=== PATIENT | male | born 1990 | race Caucasian/White ===

== ENCOUNTER 2019-11-20 17:12 | Inpatient (IN) | payer MEDICAID, OTHER ==
[~2019-11-20] VITALS: Ht 185.4 cm; Wt 69.1 kg
[2019-11-20 18:14] LABS: BASOPHILS % (AUTO) 0.5 % (0.0-2.0); EOSINOPHILS % (AUTO) 1.2 % (1.0-6.0); HEMATOCRIT 46.6 % (41-53); HEMOGLOBIN 15.7 g/dL (13.5-17.5); LYMPHOCYTES # (AUTO) 1.1 K/uL (1.0-4.8); LYMPHOCYTES % (AUTO) 20.7 % (22.0-44.0); MEAN CORPUSCULAR HGB CONC 33.7 G/dL (31.0-37.0); MEAN CORPUSCULAR VOLUME 95 fL (80-100); MONOCYTES # (AUTO) 0.5 K/uL (0.1-1.0); MONOCYTES % (AUTO) 9.5 % (2.0-9.0); NEUTROPHILS # (AUTO) 3.7 K/uL (1.8-7.7); NEUTROPHILS % (AUTO) 68.1 % (40.0-70.0); PLATELET COUNT (AUTO) 185 K/uL (150-450); RED CELL DISTRIBUTION WIDTH 12.4 % (11.5-14.5)
[2019-11-20 18:20] LABS: ANION GAP 15 mmol/L (8-16); CALCIUM, TOTAL 9.3 mg/dL (8.8-10.5); CARBON DIOXIDE 23 mmol/L (22-29); CHLORIDE 99 mmol/L (98-107); GLOMERULAR FILTR. RATE CALC 51 mL/min (>60); GLUCOSE,RANDOM 82 mg/dL (70-110); POTASSIUM 4.2 mmol/L (3.5-5.1); SODIUM SERUM 137 mmol/L (136-145); UREA NITROGEN, BLOOD 20 mg/dL (7-18)
[2019-11-20 18:28] LABS: ALANINE AMINOTRANSFERASE 26 U/L (12-78); ALBUMIN 4.5 g/dL (3.4-5.0); ALKALINE PHOSPHATASE 76 U/L (46-116); ASPARTATE AMINOTRANSFERASE 27 U/L (15-37); BILIRUBIN,TOTAL 1.1 mg/dL (0.1-1.0); TOTAL PROTEIN, SERUM 8.2 g/dL (6.4-8.2)
[2019-11-20] MEDS ORDERED: LORazepam 2 MG TABLET PO PRN (20:00)
[2019-11-20] MEDS ORDERED: ZOLPIDEM TARTRATE 10 MG TABLET PO PRN (20:00)
[2019-11-20] MEDS ORDERED: HALOPERIDOL 5 MG TABLET PO PRN (20:00)
[2019-11-21 01:20] VITALS: BP 120/81
[2019-11-21] MEDS ORDERED: IBUPROFEN 400 MG TABLET PO PRN (07:30)
[2019-11-21] MEDS ORDERED: CloNIDine HCL 0.1 MG TABLET PO PRN (07:30)
[2019-11-21] MEDS ORDERED: ACETAMINOPHEN 325 MG TABLET PO PRN (07:30)
[2019-11-21] MEDS ORDERED: PETROLATUM,WHITE 28 GM JELLY TP PRN (07:30)
[2019-11-21] MEDS ORDERED: NICOTINE 14 MG/24 HOUR PATCH TD PRN (07:30)
[2019-11-21] MEDS ORDERED: LOPERAMIDE HCL 2 MG CAPSULE PO PRN (07:30)
[2019-11-21] MEDS ORDERED: MAGNESIUM HYDROXIDE SUSPENSION 30 ML UDCUP PO PRN (07:30)
[2019-11-21] MEDS ORDERED: GuaiFENesin/D-METHORPHAN [SUGAR-FREE] 200-20MG/10 ML SYRUP UDCUP PO PRN (07:30)
[2019-11-21] MEDS ORDERED: ONDANSETRON HCL 4 MG TABLET PO PRN (07:30)
[2019-11-21] MEDS ORDERED: MAG HYDROX/AL HYDROX/SIMETH ES 30 ML SUSPENSION UDCUP PO PRN (07:30)
[2019-11-21] MEDS ORDERED: ALBUTEROL SULFATE HFA 90 MCG/PUFF 8 GM INHALER IH PRN (07:30)
[2019-11-21 08:27] VITALS: BP 132/84
[2019-11-21 08:29] LABS: CHOL/HDL RATIO 5.1 (4.2-7.3)
[2019-11-21] MEDS: BACITRACIN 28.4 GM OINTMENT TP SCH ×2 (09:00→16:47)
[2019-11-21 16:13] VITALS: BP 111/67
[2019-11-21] MEDS: MIRTAZAPINE 15 MG TABLET PO SCH (20:26)
[2019-11-21] MEDS: RisperiDONE 1 MG TABLET PO SCH (20:26)
[2019-11-22 04:14] VITALS: BP 112/70
[2019-11-22] MEDS: BACITRACIN 28.4 GM OINTMENT TP SCH ×2 (10:58→17:17)
[2019-11-22] MEDS: RisperiDONE 1 MG TABLET PO SCH (20:15)
[2019-11-22] MEDS: MIRTAZAPINE 15 MG TABLET PO SCH (20:15)
[2019-11-23 06:09] VITALS: BP 124/87
[2019-11-23 08:48] VITALS: BP 128/74
[2019-11-23] MEDS: BACITRACIN 28.4 GM OINTMENT TP SCH ×2 (13:10→17:11)
[2019-11-23 16:17] VITALS: BP 128/86
[2019-11-23] MEDS: RisperiDONE 1 MG TABLET PO SCH (21:20)
[2019-11-23] MEDS: MIRTAZAPINE 15 MG TABLET PO SCH (21:20)
[2019-11-24 05:54] VITALS: BP 124/78
[2019-11-24] MEDS: BACITRACIN 28.4 GM OINTMENT TP SCH ×2 (09:19→17:34)
[2019-11-24 09:43] VITALS: BP 117/81
[2019-11-24 16:30] VITALS: BP 140/84
[2019-11-24] MEDS: DOCUSATE SODIUM 100 MG CAPSULE PO PRN (17:03)
[2019-11-24] MEDS: MIRTAZAPINE 15 MG TABLET PO SCH (21:04)
[2019-11-24] MEDS: RisperiDONE 1 MG TABLET PO SCH (21:04)
[2019-11-25 00:38] VITALS: BP 128/78
[2019-11-25] MEDS: BACITRACIN 28.4 GM OINTMENT TP SCH ×2 (09:00→16:42)
[2019-11-25 09:49] VITALS: BP 127/79
[2019-11-25 16:29] VITALS: BP 135/98
[2019-11-25] MEDS: MIRTAZAPINE 15 MG TABLET PO SCH (21:00)
[2019-11-25] MEDS: RisperiDONE 2 MG TABLET PO SCH (21:00)
[2019-11-26 05:02] VITALS: BP 126/79
[2019-11-26 08:52] VITALS: BP 139/96
[2019-11-26] MEDS: BACITRACIN 28.4 GM OINTMENT TP SCH ×2 (09:00→17:00)
[2019-11-26] MEDS: DOCUSATE SODIUM 100 MG CAPSULE PO PRN (10:46)
[2019-11-26 17:25] VITALS: BP 136/87
[2019-11-26] MEDS: MIRTAZAPINE 15 MG TABLET PO SCH (20:19)
[2019-11-26] MEDS: RisperiDONE 2 MG TABLET PO SCH (20:19)
[2019-11-27 06:10] VITALS: BP 122/65
[2019-11-27 08:38] LABS: PHOSPHORUS 3.8 mg/dL (2.5-4.9)
[2019-11-27] MEDS: BACITRACIN 28.4 GM OINTMENT TP SCH ×2 (09:00→17:00)
[2019-11-27] MEDS: FOLIC ACID 1 MG TABLET PO SCH (09:05)
[2019-11-27] MEDS: THIAMINE 100 MG TABLET PO SCH (09:05)
[2019-11-27] MEDS: MULTIVITAMINS WITH MINERALS, THERAPEUTIC TABLET PO SCH (09:05)
[2019-11-27 09:59] VITALS: BP 118/76
[2019-11-27 19:27] VITALS: BP 111/76
[2019-11-27] MEDS: RisperiDONE 2 MG TABLET PO SCH (20:15)
[2019-11-27] MEDS: MIRTAZAPINE 15 MG TABLET PO SCH (20:15)
[2019-11-28 00:10] VITALS: BP 109/64
[2019-11-28 08:14] VITALS: BP 130/82
[2019-11-28] MEDS: THIAMINE 100 MG TABLET PO SCH (08:42)
[2019-11-28] MEDS: MULTIVITAMINS WITH MINERALS, THERAPEUTIC TABLET PO SCH (08:42)
[2019-11-28] MEDS: DOCUSATE SODIUM 100 MG CAPSULE PO PRN (08:42)
[2019-11-28] MEDS: FOLIC ACID 1 MG TABLET PO SCH (08:42)
[2019-11-28] MEDS: BACITRACIN 28.4 GM OINTMENT TP SCH ×2 (08:43→16:19)
[2019-11-28 16:42] VITALS: BP 115/76
[2019-11-28] MEDS: RisperiDONE 2 MG TABLET PO SCH (20:16)
[2019-11-28] MEDS: MIRTAZAPINE 15 MG TABLET PO SCH (20:16)
[2019-11-29 04:34] VITALS: BP 120/72
[2019-11-29] MEDS: MULTIVITAMINS WITH MINERALS, THERAPEUTIC TABLET PO SCH (08:31)
[2019-11-29] MEDS: FOLIC ACID 1 MG TABLET PO SCH (08:31)
[2019-11-29] MEDS: THIAMINE 100 MG TABLET PO SCH (08:31)
[2019-11-29] MEDS: BACITRACIN 28.4 GM OINTMENT TP SCH ×2 (08:33→16:45)
[2019-11-29 08:41] VITALS: BP 112/66
[2019-11-29 16:21] VITALS: BP 128/79
[2019-11-29] MEDS: MIRTAZAPINE 15 MG TABLET PO SCH (20:56)
[2019-11-29] MEDS: RisperiDONE 2 MG TABLET PO SCH (20:56)
[2019-11-30] MEDS: MULTIVITAMINS WITH MINERALS, THERAPEUTIC TABLET PO SCH (08:23)
[2019-11-30] MEDS: FOLIC ACID 1 MG TABLET PO SCH (08:23)
[2019-11-30] MEDS: THIAMINE 100 MG TABLET PO SCH (08:23)
[2019-11-30 08:26] VITALS: BP 109/84
[2019-11-30] MEDS: BACITRACIN 28.4 GM OINTMENT TP SCH ×2 (09:00→17:00)
[2019-11-30 16:11] VITALS: BP 100/67
[2019-11-30] MEDS: RisperiDONE 2 MG TABLET PO SCH (20:30)
[2019-11-30] MEDS: MIRTAZAPINE 15 MG TABLET PO SCH (20:30)
[2019-12-01 01:28] VITALS: BP 120/88
[2019-12-01 08:09] VITALS: BP 110/71
[2019-12-01] MEDS: BACITRACIN 28.4 GM OINTMENT TP SCH (08:40)
[2019-12-01] MEDS: THIAMINE 100 MG TABLET PO SCH (08:40)
[2019-12-01] MEDS: MULTIVITAMINS WITH MINERALS, THERAPEUTIC TABLET PO SCH (08:40)
[2019-12-01] MEDS: FOLIC ACID 1 MG TABLET PO SCH (08:40)
[2019-12-01 16:22] VITALS: BP 112/64
[2019-12-01] MEDS ORDERED: BACITRACIN 28.4 GM OINTMENT TP PRN (19:15)
[2019-12-01] MEDS: MIRTAZAPINE 15 MG TABLET PO SCH (20:01)
[2019-12-01] MEDS: RisperiDONE 2 MG TABLET PO SCH (20:01)
[2019-12-02] MEDS: FOLIC ACID 1 MG TABLET PO SCH (08:34)
[2019-12-02] MEDS: MULTIVITAMINS WITH MINERALS, THERAPEUTIC TABLET PO SCH (08:34)
[2019-12-02] MEDS: THIAMINE 100 MG TABLET PO SCH (08:34)
[2019-12-02 09:12] VITALS: BP 106/72
[2019-12-02 17:05] VITALS: BP 108/68
[2019-12-02] MEDS: MIRTAZAPINE 15 MG TABLET PO SCH (20:27)
[2019-12-02] MEDS: RisperiDONE 2 MG TABLET PO SCH (20:27)
[2019-12-03] MEDS: THIAMINE 100 MG TABLET PO SCH (08:35)
[2019-12-03] MEDS: FOLIC ACID 1 MG TABLET PO SCH (08:35)
[2019-12-03] MEDS: MULTIVITAMINS WITH MINERALS, THERAPEUTIC TABLET PO SCH (08:35)
[2019-12-03] MEDS: DOCUSATE SODIUM 100 MG CAPSULE PO PRN (09:06)
[2019-12-03 09:48] VITALS: BP 130/79
[2019-12-03 16:13] VITALS: BP 119/71
[2019-12-03] MEDS: RisperiDONE 2 MG TABLET PO SCH (20:51)
[2019-12-03] MEDS: MIRTAZAPINE 15 MG TABLET PO SCH (20:51)
[2019-12-04 02:31] VITALS: BP 126/78
[2019-12-04] MEDS: FOLIC ACID 1 MG TABLET PO SCH (08:35)
[2019-12-04] MEDS: MULTIVITAMINS WITH MINERALS, THERAPEUTIC TABLET PO SCH (08:35)
[2019-12-04] MEDS: THIAMINE 100 MG TABLET PO SCH (08:36)
[2019-12-04 09:32] VITALS: BP 108/74
[2019-12-04 16:32] VITALS: BP 110/66
[2019-12-04] MEDS: RisperiDONE 2 MG TABLET PO SCH (20:36)
[2019-12-04] MEDS: MIRTAZAPINE 15 MG TABLET PO SCH (20:36)
[2019-12-05 04:29] VITALS: BP 115/76
[2019-12-05] MEDS: MULTIVITAMINS WITH MINERALS, THERAPEUTIC TABLET PO SCH (08:25)
[2019-12-05] MEDS: FOLIC ACID 1 MG TABLET PO SCH (08:25)
[2019-12-05] MEDS: THIAMINE 100 MG TABLET PO SCH (08:26)
[2019-12-05 08:31] VITALS: BP 120/70
[2019-12-05 16:23] VITALS: BP 102/65
[2019-12-05] MEDS: RisperiDONE 2 MG TABLET PO SCH (20:07)
[2019-12-05] MEDS: MIRTAZAPINE 15 MG TABLET PO SCH (20:07)
[2019-12-06 01:37] VITALS: BP 117/66
[2019-12-06] MEDS: MULTIVITAMINS WITH MINERALS, THERAPEUTIC TABLET PO SCH (09:31)
[2019-12-06] MEDS: FOLIC ACID 1 MG TABLET PO SCH (09:31)
[2019-12-06] MEDS: THIAMINE 100 MG TABLET PO SCH (09:33)
[2019-12-06 09:34] VITALS: BP 106/72
[2019-12-06 16:15] VITALS: BP 108/71
[2019-12-06] MEDS: RisperiDONE 2 MG TABLET PO SCH (20:58)
[2019-12-06] MEDS: MIRTAZAPINE 15 MG TABLET PO SCH (20:58)
[2019-12-07 04:42] VITALS: BP 110/70
[2019-12-07] MEDS: FOLIC ACID 1 MG TABLET PO SCH (08:14)
[2019-12-07] MEDS: THIAMINE 100 MG TABLET PO SCH (08:14)
[2019-12-07] MEDS: MULTIVITAMINS WITH MINERALS, THERAPEUTIC TABLET PO SCH (08:14)
[2019-12-07 08:42] VITALS: BP 101/54
[2019-12-07 13:58] VITALS: BP 111/74
[2019-12-07 17:32] VITALS: BP 122/65
[2019-12-07] MEDS: RisperiDONE 2 MG TABLET PO SCH (20:18)
[2019-12-07] MEDS: MIRTAZAPINE 15 MG TABLET PO SCH (20:18)
[2019-12-08 00:49] VITALS: BP 102/64
[2019-12-08] MEDS: THIAMINE 100 MG TABLET PO SCH (08:23)
[2019-12-08] MEDS: FOLIC ACID 1 MG TABLET PO SCH (08:23)
[2019-12-08] MEDS: MULTIVITAMINS WITH MINERALS, THERAPEUTIC TABLET PO SCH (08:23)
[2019-12-08 08:28] VITALS: BP 102/65
[2019-12-08] MEDS ORDERED: MIRT-89 PO (13:42)
[2019-12-08] MEDS ORDERED: RISP2TAB76 PO (13:42)
== END 2019-12-08 16:30 | disposition home or self-care (01) | DRG 751 ==
LOC: EMS 17:14 → B2S 21:00
DX: F33.3 Major depressive disorder, recurrent, severe with psychotic symptoms (principal); K21.9 Gastro-esophageal reflux disease without esophagitis; L29.9 Pruritus, unspecified; R45.851 Suicidal ideations; R00.0 Tachycardia, unspecified; I95.9 Hypotension, unspecified; R51 Headache; Z79.899 Other long term (current) drug therapy
CPT/HCPCS: 83735; 84100; G0480

== ENCOUNTER 2019-11-23 08:42 | Emergency (ER) | payer MEDICAID, OTHER ==
[~2019-11-23] VITALS: Ht 180.3 cm; Wt 66.0 kg
[2019-11-23] MEDS ORDERED: SODIUM CHLORIDE 0.9% 1,000 ML IV ONE (09:15)
[2019-11-23 09:39] LABS: BASOPHILS % (AUTO) 0.4 % (0.0-2.0); EOSINOPHILS % (AUTO) 1.1 % (1.0-6.0); HEMATOCRIT 45.6 % (41-53); HEMOGLOBIN 15.9 g/dL (13.5-17.5); LYMPHOCYTES % (AUTO) 16.8 % (22.0-44.0); MEAN CORPUSCULAR HEMOGLOBIN 33.1 pg (26.0-34.0); MEAN CORPUSCULAR HGB CONC 34.8 G/dL (31.0-37.0); MEAN CORPUSCULAR VOLUME 95 fL (80-100); MONOCYTES # (AUTO) 0.4 K/uL (0.1-1.0); MONOCYTES % (AUTO) 7.2 % (2.0-9.0); NEUTROPHILS # (AUTO) 4.4 K/uL (1.8-7.7); NEUTROPHILS % (AUTO) 74.5 % (40.0-70.0); PLATELET COUNT (AUTO) 165 K/uL (150-450); RED CELL DISTRIBUTION WIDTH 12.5 % (11.5-14.5)
[2019-11-23 09:45] LABS: CALCIUM, TOTAL 9.4 mg/dL (8.8-10.5); CREATININE 1.71 mg/dL (0.60-1.30); POTASSIUM 3.7 mmol/L (3.5-5.1)
[2019-11-23 10:56] LABS: GLUCOSE,POINT OF CARE 106 MG/DL (70-110)
[2019-11-23 11:46] VITALS: BP 140/87
== END 2019-11-23 12:18 | disposition home or self-care (01) ==
LOC: EMS 08:44
DX: E86.0 Dehydration (principal)

== ENCOUNTER 2020-07-31 00:24 | Inpatient (IN) | payer MEDICAID, OTHER ==
[~2020-07-31] VITALS: Ht 185.4 cm; Wt 87.1 kg
[~2020-07-31 00:24] MED LIST: MIRT-89 PO; RISP2TAB76 PO
[2020-07-31 01:25] LABS: AMPHET/METH SCREEN,URINE NEGATIVE (NEGATIVE); BARBITURATE SCREEN, URINE NEGATIVE (NEGATIVE); BENZODIAZEPINES SCREEN,URINE NEGATIVE (NEGATIVE); CANNABINOID SCREEN,URINE POSITIVE (NEGATIVE); COCAINE SCREEN,URINE NEGATIVE (NEGATIVE); METHADONE SCREEN, URINE NEGATIVE (NEGATIVE); OPIATE SCREEN,URINE NEGATIVE (NEGATIVE); PHENCYCLIDINE SCREEN,URINE NEGATIVE (NEGATIVE)
[2020-07-31 01:43] LABS: COVID AG,FIA SOURCE NASOPHARYNGEAL
[2020-07-31] MEDS ORDERED: LORazepam 2 MG TABLET PO PRN (01:45)
[2020-07-31] MEDS ORDERED: ZOLPIDEM TARTRATE 10 MG TABLET PO PRN (01:45)
[2020-07-31] MEDS ORDERED: HALOPERIDOL 5 MG TABLET PO PRN (01:45)
[2020-07-31 01:46] LABS: BASOPHILS % (AUTO) 0.2 % (0.0-2.0); EOSINOPHILS % (AUTO) 0.2 % (1.0-6.0); HEMATOCRIT 43.7 % (41-53); HEMOGLOBIN 14.9 g/dL (13.5-17.5); LYMPHOCYTES # (AUTO) 1.1 K/uL (1.0-4.8); LYMPHOCYTES % (AUTO) 15.1 % (22.0-44.0); MEAN CORPUSCULAR HEMOGLOBIN 32.7 pg (26.0-34.0); MEAN CORPUSCULAR HGB CONC 34.1 G/dL (31.0-37.0); MEAN CORPUSCULAR VOLUME 96 fL (80-100); MONOCYTES # (AUTO) 0.6 K/uL (0.1-1.0); MONOCYTES % (AUTO) 7.5 % (2.0-9.0); NEUTROPHILS # (AUTO) 5.7 K/uL (1.8-7.7); PLATELET COUNT (AUTO) 205 K/uL (150-450); RED BLOOD CELL COUNT(AUTO) 4.55 MIL/uL (4.50-5.90); RED CELL DISTRIBUTION WIDTH 13.3 % (11.5-14.5)
[2020-07-31 02:15] LABS: ALANINE AMINOTRANSFERASE 104 U/L (12-78); ALBUMIN 4.4 g/dL (3.4-5.0); ALKALINE PHOSPHATASE 103 U/L (46-116); ANION GAP 10 mmol/L (8-16); ASPARTATE AMINOTRANSFERASE 131 U/L (15-37); BILIRUBIN,TOTAL 0.4 mg/dL (0.1-1.0); CALCIUM, TOTAL 9.4 mg/dL (8.8-10.5); CARBON DIOXIDE 29 mmol/L (22-29); CHLORIDE 103 mmol/L (98-107); CREATININE 1.18 mg/dL (0.60-1.30); GLOMERULAR FILTR. RATE CALC > 60 mL/min (>60); GLUCOSE,RANDOM 131 mg/dL (70-110); POTASSIUM 4.6 mmol/L (3.5-5.1); SODIUM SERUM 142 mmol/L (136-145)
[2020-07-31 02:31] LABS: UREA NITROGEN, BLOOD 19 mg/dL (7-18)
[2020-07-31 04:27] LABS: APPEARANCE,URINE CLEAR (CLEAR); BILIRUBIN,URINE NEGATIVE (NEGATIVE); GLUCOSE, URINE (UA) NEGATIVE (NEGATIVE); KETONES,URINE NEGATIVE (NEGATIVE); LEUKOCYTE ESTERASE ,URINE NEGATIVE (NEGATIVE); NITRATE,URINE NEGATIVE (NEGATIVE); OCCULT BLOOD,URINE NEGATIVE (NEGATIVE); PROTEIN,URINE NEGATIVE (NEGATIVE); UROBILINOGEN,URINE 0.2 mg/dL (<=1.0)
[2020-07-31 07:25] VITALS: BP 135/85
[2020-07-31 08:10] VITALS: BP 101/60
[2020-07-31] MEDS ORDERED: ALBUTEROL SULFATE HFA 90 MCG/PUFF 8 GM INHALER IH PRN (14:45)
[2020-07-31] MEDS ORDERED: GuaiFENesin/D-METHORPHAN [SUGAR-FREE] 200-20MG/10 ML SYRUP UDCUP PO PRN (14:45)
[2020-07-31] MEDS ORDERED: IBUPROFEN 400 MG TABLET PO PRN (14:45)
[2020-07-31] MEDS ORDERED: MAG HYDROX/AL HYDROX/SIMETH ES 30 ML SUSPENSION UDCUP PO PRN (14:45)
[2020-07-31] MEDS ORDERED: MAGNESIUM HYDROXIDE SUSPENSION 30 ML UDCUP PO PRN (14:45)
[2020-07-31] MEDS ORDERED: ONDANSETRON HCL 4 MG TABLET PO PRN (14:45)
[2020-07-31] MEDS ORDERED: CloNIDine HCL 0.1 MG TABLET PO PRN (14:45)
[2020-07-31] MEDS ORDERED: PETROLATUM,WHITE 28 GM JELLY TP PRN (14:45)
[2020-07-31] MEDS ORDERED: ACETAMINOPHEN 325 MG TABLET PO PRN (14:45)
[2020-07-31] MEDS ORDERED: LOPERAMIDE HCL 2 MG CAPSULE PO PRN (14:45)
[2020-07-31] MEDS ORDERED: NICOTINE 14 MG/24 HOUR PATCH TD PRN (14:45)
[2020-07-31] MEDS ORDERED: DOCUSATE SODIUM 100 MG CAPSULE PO PRN (14:45)
[2020-07-31 16:06] VITALS: BP 123/79
[2020-07-31] MEDS: RisperiDONE 2 MG TABLET PO SCH (20:21)
[2020-07-31] MEDS: MIRTAZAPINE 30 MG TABLET PO SCH (20:21)
[2020-08-01 06:30] VITALS: BP 98/58
[2020-08-01 07:45] LABS: CHOL/HDL RATIO 5.4 (4.2-7.3)
[2020-08-01 08:14] VITALS: BP 115/60
[2020-08-01 16:08] VITALS: BP 127/77
[2020-08-01] MEDS: RisperiDONE 2 MG TABLET PO SCH (20:26)
[2020-08-01] MEDS: MIRTAZAPINE 30 MG TABLET PO SCH (20:26)
[2020-08-02 01:30] VITALS: BP 118/72
[2020-08-02 08:41] VITALS: BP 110/62
[2020-08-02 16:31] VITALS: BP 129/82
[2020-08-02] MEDS: RisperiDONE 2 MG TABLET PO SCH (20:47)
[2020-08-02] MEDS: MIRTAZAPINE 30 MG TABLET PO SCH (20:47)
[2020-08-03 06:24] VITALS: BP 122/70
[2020-08-03 08:21] VITALS: BP 142/79
[2020-08-03 16:05] VITALS: BP 125/6
== END 2020-08-03 16:40 | disposition home or self-care (01) | DRG 750 ==
LOC: EMS 00:27 → B3A 01:49
PROVIDERS: ADMIT Psychiatry & Neurology Psychiatry; ATTEND Psychiatry & Neurology Psychiatry
DX: F20.9 Schizophrenia, unspecified (principal); R45.851 Suicidal ideations; R45.850 Homicidal ideations; F41.9 Anxiety disorder, unspecified; F17.210 Nicotine dependence, cigarettes, uncomplicated; Z91.14 Patient's other noncompliance with medication regimen; F12.90 Cannabis use, unspecified, uncomplicated; E78.5 Hyperlipidemia, unspecified; R74.01 Elevation of levels of liver transaminase levels; F19.10 Other psychoactive substance abuse, uncomplicated; F32.9 Major depressive disorder, single episode, unspecified; Z20.822 Contact with and (suspected) exposure to COVID-19
CPT/HCPCS: 80053; 80061; 81003; 85025; 87426; 99285; G0480